=== PATIENT | female | born 1950 | race Caucasian/White ===

== ENCOUNTER 2016-09-10 09:03 | Outpatient (CLI) | payer OTHER ==
[2015-10-03 14:05] VITALS: BP 148/75
[2016-09-10 10:08] LABS: eGFR (African) > 60; eGFR (Non-African) > 60
== END 2016-09-10 09:04 ==
LOC: LAB 09:03
PROVIDERS: ATTEND Family Medicine
DX: Z13.6 Encounter for screening for cardiovascular disorders (principal)
CPT/HCPCS: 36415; 80053; 80061

== ENCOUNTER 2016-10-11 10:25 | Outpatient (CLI) | payer OTHER ==
[2015-10-03 14:05] VITALS: BP 148/75
== END 2016-10-11 10:26 ==
LOC: LAB 10:25
PROVIDERS: ATTEND Family Medicine
DX: E11.9 Type 2 diabetes mellitus without complications (principal)
CPT/HCPCS: 36415; 83036

== ENCOUNTER 2017-01-01 10:51 | Outpatient (CLI) | payer OTHER ==
[2015-10-03 14:05] VITALS: BP 148/75
[2017-01-01 11:44] LABS: eGFR (African) > 60; eGFR (Non-African) > 60
== END 2017-01-01 10:52 ==
LOC: LAB 10:51
PROVIDERS: ATTEND Family Medicine
DX: E11.9 Type 2 diabetes mellitus without complications (principal); E78.2 Mixed hyperlipidemia
CPT/HCPCS: 36415; 80053; 80061; 83036

== ENCOUNTER 2017-04-04 08:47 | Outpatient (CLI) | payer OTHER ==
[2015-10-03 14:05] VITALS: BP 148/75
== END 2017-04-04 08:50 ==
LOC: LAB 08:47
PROVIDERS: ATTEND Family Medicine
DX: E11.9 Type 2 diabetes mellitus without complications (principal)
CPT/HCPCS: 36415; 83036

== ENCOUNTER 2017-07-04 08:46 | Outpatient (CLI) | payer OTHER ==
[2015-10-03 14:05] VITALS: BP 148/75
== END 2017-07-04 09:00 ==
LOC: LAB 08:46
PROVIDERS: ATTEND Family Medicine
DX: E11.9 Type 2 diabetes mellitus without complications (principal)
CPT/HCPCS: 36415; 83036

== ENCOUNTER 2017-09-19 10:00 | Outpatient (CLI) | payer OTHER ==
[2015-10-03 14:05] VITALS: BP 148/75
== END 2017-09-19 10:03 ==
LOC: RAD 10:00
PROVIDERS: ATTEND Family Medicine
DX: Z78.0 Asymptomatic menopausal state (principal)
CPT/HCPCS: 77080

== ENCOUNTER 2017-10-02 09:32 | Outpatient (CLI) | payer OTHER ==
[2015-10-03 14:05] VITALS: BP 148/75
== END 2017-10-02 13:34 ==
LOC: LAB 09:32
PROVIDERS: ATTEND Family Medicine
DX: E11.9 Type 2 diabetes mellitus without complications (principal)
CPT/HCPCS: 36415; 83036

== ENCOUNTER 2018-01-01 08:42 | Outpatient (CLI) | payer OTHER ==
[2015-10-03 14:05] VITALS: BP 148/75
[2018-01-01 10:53] LABS: eGFR (Non-African) > 60
== END 2018-01-01 08:43 ==
LOC: LAB 08:42
PROVIDERS: ATTEND Family Medicine
DX: E11.9 Type 2 diabetes mellitus without complications (principal)
CPT/HCPCS: 36415; 80053; 80061; 83036

== ENCOUNTER 2018-04-01 08:42 | Outpatient (CLI) | payer OTHER ==
[2015-10-03 14:05] VITALS: BP 148/75
== END 2018-04-01 08:44 ==
LOC: LAB 08:42
PROVIDERS: ATTEND Family Medicine
DX: E11.9 Type 2 diabetes mellitus without complications (principal)
CPT/HCPCS: 36415; 82043; 83036

== ENCOUNTER 2018-07-07 08:44 | Outpatient (CLI) | payer OTHER ==
[2015-10-03 14:05] VITALS: BP 148/75
== END 2018-07-07 08:46 ==
LOC: LAB 08:44
PROVIDERS: ATTEND Family Medicine
DX: E11.9 Type 2 diabetes mellitus without complications (principal)
CPT/HCPCS: 36415; 83036

== ENCOUNTER 2018-11-11 08:58 | Outpatient (CLI) | payer OTHER ==
[2015-10-03 14:05] VITALS: BP 148/75
== END 2018-11-11 09:00 ==
LOC: LAB 08:58
PROVIDERS: ATTEND Family Medicine
DX: E11.9 Type 2 diabetes mellitus without complications (principal)
CPT/HCPCS: 36415; 83036

== ENCOUNTER 2018-12-01 07:29 | Day surgery (SDC) | payer OTHER ==
[2015-10-03 14:05] VITALS: BP 148/75
[2018-12-01] MEDS ORDERED: LACTATED RINGERS 1,000 ML IV.SOLN IV ONE (08:48)
[2018-12-01] MEDS ORDERED: LIDOCAINE HCL 2% PF 100MG/5ML VIAL IJ ONE (08:48)
[2018-12-01] MEDS ORDERED: PROPOFOL 200 MG/20 ML VIAL IV ONE (08:48)
--- NOTE | 2018-12-03 12:17 | GI Report ---
DATE OF PROCEDURE: 12/01/2018 REFERRING PHYSICIAN: Dr. Ludwig. PROCEDURE PERFORMED: Colonoscopy with polypectomy. SURGEON: Anmol Villarreal M.D., Len. INDICATION FOR PROCEDURE: This 68-year-old woman had 3 polyps a little over 3 years ago. 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 Her mother had colon cancer in her 70s. She denies any interval changes in her stools. She has been stable cardio, and pulmonary-pompa. PROCEDURE MEDICATION: Propofol, as per Anesthesia. DESCRIPTION OF PROCEDURE: The Olympus video colonoscope was advanced through the rectum and slowly advanced all the way to the cecum. In the cecum and proximal ascending colon 2 small polyps were removed, varying between 2 and 3 mm size. They were flat, and removed with cold snare. The remaining part of the ascending colon and transverse colon: No obvious intraluminal lesions were noted. Descending colon and sigmoid: Again, some redundancy but no obvious intraluminal lesions were noted. Retroflexion in the rectum was normal. The patient tolerated the procedure well. FINDINGS: Two polyps removed from the cecum and ascending colon, submitted to pathology. RECOMMENDATIONS: 1. High fiber diet. 2. Followup colonoscopy in 5 years, pending pathology. ANMOL VILLARREAL M.D., F.A.CSelinaP. LANCE/karly Job#: [id number] Cc: Dr. Vani LI
== END 2018-12-01 09:15 | disposition home or self-care (01) ==
LOC: OPSURG 07:29
PROVIDERS: ATTEND Internal Medicine Gastroenterology
DX: K63.5 Polyp of colon (principal); K63.89 Other specified diseases of intestine; Z80.0 Family history of malignant neoplasm of digestive organs
CPT/HCPCS: 45385; J2001; J2704; J7120

== ENCOUNTER 2019-03-16 08:43 | Outpatient (CLI) | payer OTHER ==
[2015-10-03 14:05] VITALS: BP 148/75
[2019-03-16 09:06] LABS: A1C 6.5 % (<5.7)
[2019-03-16 09:43] LABS: eGFR (Non-African) > 60
[2019-03-16 09:44] LABS: HDL 36 mg/dL (>40)
== END 2019-03-16 08:48 ==
LOC: LAB 08:43
PROVIDERS: ATTEND Family Medicine
DX: E11.9 Type 2 diabetes mellitus without complications (principal)
CPT/HCPCS: 36415; 80053; 80061; 83036